=== PATIENT | female | born 1990 | race Caucasian/White ===

== ENCOUNTER 2017-01-22 14:23 | Inpatient (IN) | payer MEDICAID ==
[~2017-01-22] VITALS: Ht 165.1 cm; Wt 81.6 kg
[2017-01-22 14:27] VITALS: BP 128/64
[2017-01-22] MEDS ORDERED: LEVO0.173 PO (14:29)
--- NOTE | 2017-01-22 14:35 | NUR ---
Patient ambulated to bed 03.
--- NOTE | 2017-01-22 14:40 | NUR ---
PT CAME TO ER DUE TO N/V/D X1 DAY WITH DIZZINESS;PT STATES SHE HAS ABDOMINAL CRAMPING THAT RADIATES TO BILATERAL LEGS;BACK PAIN W/ PAIN SCALE OF 7/10 NON RADIATING;DENIES ANY MEDICAL HX;DENIES CP/SOB AT THIS TIME;AAOX4;NO ACUTE DISTRESS NOTED AT THIS TIME;HOB ELEVATED;NEEDS ATTENDED;SAFETY MEASURES DONE;POSITIONED FOR COMFORT;ALL MONITORS IN PLACED
[2017-01-22] MEDS ORDERED: NACL 0.9% 1,000 ML IV SCH (14:41)
[2017-01-22] MEDS ORDERED: ONDANSETRON 4 MG/2 ML VIAL IVP ONE ×2 (14:45→19:20)
--- NOTE | 2017-01-22 14:57 | NUR ---
Dr. Garza evalauting patient at bedside.
[2017-01-22] MEDS ORDERED: KETOROLAC 30 MG/ML VIAL IVP ONE (15:05)
[2017-01-22 15:22] LABS: BASOPHILS # (AUTO) 0.1 K/uL (0.00-0.22); BASOPHILS % (AUTO) 1.1 % (0.0-2.0); EOSINOPHILS % (AUTO) 0.6 % (0.0-4.0); HEMATOCRIT 40.4 % (36-48); HEMOGLOBIN 12.9 g/dL (12.0-16.0); LYMPHOCYTES # (AUTO) 1.6 K/uL (2.5-16.5); LYMPHOCYTES % (AUTO) 30.9 % (20.5-51.1); MEAN CORPUSCULAR HEMOGLOBIN 23 pg (27-31); MEAN CORPUSCULAR HGB CONC 32 g/dL (33-37); MEAN CORPUSCULAR VOLUME 73 fL (80-94); MONOCYTES # (AUTO) 0.2 K/uL (0.8-1.0); MONOCYTES % (AUTO) 4.7 % (1.7-9.3); NEUTROPHILS # (AUTO) 3.4 K/uL (1.8-7.7); NEUTROPHILS % (AUTO) 62.7 % (42.2-75.2); PLATELET COUNT (AUTO) 393 K/uL (140-450); RED BLOOD CELL COUNT(AUTO) 5.51 MIL/uL (4.20-5.40); RED CELL DISTRIBUTION WIDTH 13.6 % (11.6-13.7); WHITE BLOOD COUNT (AUTO) 5.3 K/uL (4.8-10.8)
[2017-01-22 15:28] LABS: BILIRUBIN,URINE NEGATIVE (NEGATIVE); BLOOD, URINE NEGATIVE (NEGATIVE); COLOR,URINE YELLOW (YELLOW); LEUKOCYTE ESTERASE ,URINE 1+ (NEGATIVE); NITRITE, URINE NEGATIVE (NEGATIVE); PROTEIN,URINE NEGATIVE (NEGATIVE); UGLUCOSE NEGATIVE (NEGATIVE); UROBILINOGEN,URINE 0.2 EU/dL (0.2 - 1)
[2017-01-22 15:31] LABS: APPEARANCE,URINE HAZY (CLEAR)
--- NOTE | 2017-01-22 15:34 | NUR ---
PT AMBULATED TO THE RESTROOM;
[2017-01-22 15:36] LABS: CALCIUM 9.2 mg/dL (8.5-10.1); CARBON DIOXIDE 26.5 mmol/L (21-32); CREATININE 0.8 mg/dL (0.6-1.3); POTASSIUM 3.5 mmol/L (3.5-5.1)
[2017-01-22 15:41] LABS: ALBUMIN 3.9 g/dL (3.4-5.0); TOTAL BILIRUBIN 0.6 mg/dL (0.0-1.0); TOTAL PROTEIN, SERUM 8.5 g/dL (6.4-8.2)
[2017-01-22 15:52] LABS: BACTERIA,URINE 2+ /HPF (None Seen); MUCUS,URINE 1+ /LPF (None Seen); RBC,URINE 0-3 /HPF (0-5); WBC,URINE 0-5 /HPF (0-5)
[2017-01-22 15:56] LABS: FREE T4 (FREE THYROXINE) 1.17 ng/dL (0.76-1.46); THYROID STIMULATING HORMONE 6.18 uIU/mL (0.34-3.76)
[2017-01-22] MEDS ORDERED: NACL 0.9% 1,000 ML IV ONE ×2 (16:15→18:30)
--- NOTE | 2017-01-22 16:22 | NUR ---
PT LYING ON BED NO ACUTE DISTRESS NOTED AT THIS TIME;WILL CONTINUE MONITOR PT.
--- NOTE | 2017-01-22 17:05 | NUR ---
ASKED PT IF SHE CAN GIVE A STOOL SPECIMEN BUT PT SAYS SHE CAN NOT AT THIS MOMENT.
--- NOTE | 2017-01-22 17:37 | NUR ---
PO CHALLENGE DONE;PT STATES SHE STILL FEELDS NAUSEATED;NO VOMITTING NOTED;WILL CONTINUE MONITOR PT.
[2017-01-22] MEDS ORDERED: HYDROmorphone 1 MG/ML AMP IVP ONE (18:00)
--- NOTE | 2017-01-22 18:01 | NUR ---
PT STATES HER BACK IS HURTING AGAIN;NOTIFIED DR RUIZ;ORDERED DILAUDID;WILL CONTINUE TO MONITOR PT.
--- NOTE | 2017-01-22 18:16 | NUR ---
ASKED PT IF SHE CAN GIVE A STOOL SPECIMEN;PT STILL UNABLE TO GIVE SAMPLE OF STOOL.
--- NOTE | 2017-01-22 18:34 | NUR ---
PT C/O DIZZINESS AND STATES "I FEEL LIKE PASSING OUT";NOTIFIED DR RUIZ ORDERED TO GIVE IVF.WILL CONTINUE TO MONITOR PT.
--- NOTE | 2017-01-22 19:15 | NUR ---
PT STILL VOMITING;C/O DIZZINESS;WILLL CONTINUE TO MONITOR PT.
--- NOTE | 2017-01-22 19:16 | NUR ---
Pt report given to PACO Bolanos. Transfer of care at this time.
--- NOTE | 2017-01-22 19:17 | NUR ---
REPORT RECEIVED FROM ANGELA ANTONIO. ASSUMED PT CARE.
[2017-01-22] MEDS ORDERED: LORazepam 2 MG/ML VIAL IVP PRN ×2 (19:35→19:40)
[2017-01-22] MEDS ORDERED: MORPHINE SULFATE 2 MG/ML SYR IVP PRN (19:35)
[2017-01-22] MEDS ORDERED: LEVOFLOXACIN 500 MG/D5W PREMIX 100 ML IV ONE (19:35)
[2017-01-22] MEDS ORDERED: PROMETHAZINE 25 MG/ML VIAL IVP PRN (19:35)
[2017-01-22] MEDS ORDERED: KETOROLAC 30 MG/ML VIAL IVP PRN (19:40)
[2017-01-22] MEDS ORDERED: DICYCLOMINE HCL LIQUID 20 MG, ALUMINUM HYD/MAG/SIMETHICONE 30 ML, LIDOCAINE VISCOUS 2% ... PO ONE ×3 (20:05)
--- NOTE | 2017-01-22 20:45 | NUR ---
ADMITTED 26YEARS OLD FEMALE FROM ER FOR VOMITTING. ORIENTED TO ROOM AND UNIT ROUTINES. SEE ADMISSION NURSING ASSESSMENT AND HISTORY. PLAN OF CARE DISCUSSED WITH PATIENT AND FAMILY MEMBER, VERBALIZED UNDERSTANDING WELL. CALL LIGHT WITHIN REACH.
--- NOTE | 2017-01-22 20:48 | NUR ---
Patient will be admitted to care of DR GOMEZ. Admited to TELEMETRY. Will go to room 115. Belongings list completed. Report to LAW ANTONIO.
[2017-01-22] MEDS: NACL 0.9% 1,000 ML IV SCH (22:16)
[2017-01-22] MEDS: HYDROcodone/APAP 5/325 MG 1 TAB TAB PO PRN (22:23)
--- NOTE | 2017-01-23 | NUR ---
SLEEPING WELL. NO COMPLAINS. IVF INFUSING WELL. VITAL SIGNS STABLE. CALL LIGHT WITHIN REACH.
[2017-01-23 00:03] VITALS: BP 95/48
[2017-01-23 04:19] VITALS: BP 97/50
--- NOTE | 2017-01-23 04:24 | NUR ---
VITAL SIGNS STABLE. NO COMPLAINS. SLEEPING WELL. NO VOMITTING NOTED. CALL LIGHT WITHIN REACH.
[2017-01-23 04:32] LABS: AMPHETAMINE, URINE NEG. ng/ml (NEG <=1000); BARBITURATE, URINE NEG. ng/ml (NEG <=200); BENZODIAZEPINE, URINE NEG. ng/mL (NEG <=200); CANNABINOID, URINE NEG. ng/mL (NEG <=50); COCAINE, URINE NEG. ng/mL (NEG <=300); OPIATE, URINE POS. ng/mL (NEG <=2000); PHENCYCLIDINE SCREEN,URINE NEG. ng/mL (NEG <=25)
[2017-01-23] MEDS: NACL 0.9% 1,000 ML IV SCH ×2 (05:31→15:31)
[2017-01-23] MEDS: LEVOTHYROXINE 0.075 MG, LEVOTHYROXINE 0.1 MG PO SCH ×2 (06:18)
[2017-01-23 06:29] LABS: BASOPHILS # (AUTO) 0.1 K/uL (0.00-0.22); BASOPHILS % (AUTO) 1.4 % (0.0-2.0); EOSINOPHILS % (AUTO) 1.1 % (0.0-4.0); HEMATOCRIT 33.9 % (36-48); HEMOGLOBIN 10.8 g/dL (12.0-16.0); LYMPHOCYTES # (AUTO) 2.5 K/uL (2.5-16.5); LYMPHOCYTES % (AUTO) 53.9 % (20.5-51.1); MEAN CORPUSCULAR HEMOGLOBIN 23 pg (27-31); MEAN CORPUSCULAR HGB CONC 32 g/dL (33-37); MEAN CORPUSCULAR VOLUME 73 fL (80-94); MONOCYTES # (AUTO) 0.4 K/uL (0.8-1.0); MONOCYTES % (AUTO) 9.4 % (1.7-9.3); NEUTROPHILS # (AUTO) 1.5 K/uL (1.8-7.7); NEUTROPHILS % (AUTO) 34.2 % (42.2-75.2); PLATELET COUNT (AUTO) 257 K/uL (140-450); RED BLOOD CELL COUNT(AUTO) 4.62 MIL/uL (4.20-5.40); RED CELL DISTRIBUTION WIDTH 13.3 % (11.6-13.7); WHITE BLOOD COUNT (AUTO) 4.5 K/uL (4.8-10.8)
[2017-01-23] MEDS ORDERED: LEVOTHYROXINE 0.075 MG TAB PO SCH (06:30)
[2017-01-23 06:38] LABS: MAGNESIUM 1.7 mg/dL (1.8-2.4); PHOSPHORUS 2.7 mg/dL (2.5-4.9)
[2017-01-23 06:47] LABS: ANION GAP 13.7 (8-16); CALCIUM 7.7 mg/dL (8.5-10.1); CARBON DIOXIDE 22.8 mmol/L (21-32); CREATININE 0.6 mg/dL (0.6-1.3); POTASSIUM 3.5 mmol/L (3.5-5.1)
--- NOTE | 2017-01-23 07:16 | NUR ---
ENDORSED CARE AT BEDSIDE WITH YANELI ANTONIO, PATIENT IN STABLE CONDITION.
--- NOTE | 2017-01-23 07:30 | NUR ---
RECEIVED REPORT FROM NIGHT NURSE. PT RESTING IN BED, AOX4, ABLE TO VERBALIZE NEEDS. PT DENIES N/V/D. PT DENIES CP, SOB OR S/S OF ACUTE DISTRESS. PT EDUCATED TO AVOID QUICK POSITION CHANGES AND TO MOVE SLOWLY. PT C/O HEADACHE, WILL MEDICATE ORDERED. IV SITE ASYMPTOMATIC, PATENT AND INTACT. IVF INFUSING WELL. REVIEWED AND DISCUSSED PLAN OF CARE WITH PT. PT VERBALIZES UNDERSTANDING. SAFETY MEASURES ENSURED. CALL LIGHT WITHIN REACH. WILL CONTINUE TO MONITOR.
[2017-01-23 08:00] VITALS: BP 107/61
--- NOTE | 2017-01-23 08:55 | NUR ---
MEDICATION ADMINISTERED WITH EDUCATION, PT VERBALIZES UNDERSTANDING. IVF INFUSING WELL. PT TOLERATED WELL. ALL NEEDS MET. SAFETY MEASURES ENSURED. WILL CONTINUE TO MONITOR.
[2017-01-23] MEDS ORDERED: APAP/BUTAL/CAFF 325/50/40 MG 1 TAB PO SCH (09:00)
[2017-01-23] MEDS ORDERED: MAG SULF 2000 MG/WATER PREMIX 50 ML IV SCH (09:00)
--- NOTE | 2017-01-23 09:03 | NUR ---
PATIENT HAS BEEN SCREENED AND CATEGORIZED MODERATE NUTRITION RISK. PATIENT WILL BE SEEN WITHIN 3-5 DAYS OF ADMISSION. 01/25/17-01/27/[address]
--- NOTE | 2017-01-23 10:59 | NUR ---
CM NOTE PER PATTERN ATTENDANT JOSÉ EXT [id number] SEND REVIEWS TO BOTH [email or web address] AND [facility]. INITIAL REVIEW SENT TO [email or web address] FAX# [phone] PH# [phone] AND [facility] FAX# [phone] PH# [phone]
[2017-01-23 12:00] VITALS: BP 109/65
[2017-01-23] MEDS ORDERED: APAP/BUTAL/CAFF 325/50/40 MG 1 TAB PO PRN (12:00)
--- NOTE | 2017-01-23 13:22 | NUR ---
MEDICATIONS ADMINISTERED WITH EDUCATION, PT VERBALIZES UNDERSTANDING. PT TOLERATED WELL. PT C/O PAIN, SEE PAIN ASSESSMENT. PT TOLERATING CLEAR LIQUID DIET, EATING 50% OF MEAL. PT STATES SHE "DOES NOT WANT TO DRINK TOO MUCH LIQUIDS." PT DENIES NAUSEA/VOMITING.
[2017-01-23] MEDS: DICYCLOMINE HCL LIQUID 10 MG/5 ML UDC PO SCH ×3 (13:43→20:50)
[2017-01-23] MEDS: HYDROcodone/APAP 5/325 MG 1 TAB TAB PO PRN (13:44)
[2017-01-23] MEDS ORDERED: tiZANidine 4 MG TAB PO PRN (15:05)
[2017-01-23] MEDS ORDERED: tiZANidine 4 MG TAB PO SCH (15:30)
[2017-01-23 16:00] VITALS: BP 121/84
[2017-01-23] MEDS: ONDANSETRON 4 MG/2 ML VIAL IVP PRN ×2 (16:28→20:43)
--- NOTE | 2017-01-23 16:35 | NUR ---
PT FRIENDS AT BEDSIDE. MEDICATIONS ADMINISTERED WITH EDUCATION, PT VERBALIZES UNDERSTANDING, PT TOLERATED MEDS WELL. PT ATE 50% OF SANDWICH, PT REPORTS SLIGHT NAUSEA. IV ZOFRAN ADMINISTERED ORDERED. PT TOLERATED WELL. SAFETY MEASURES ENSURED. WILL CONTINUE TO MONITOR.
--- NOTE | 2017-01-23 19:29 | NUR ---
ENDORSED PLAN OF CARE TO NIGHT NURSE. CONDITION STABLE.
--- NOTE | 2017-01-23 19:30 | NUR ---
RECD. RESTING IN BED, AWAKE, A/OX4, RESPIRATION EVEN AND UNLABORED. IV OF NS AT 100 ML/HR INFUSING, LEFT FOREARM G 22. STATED WITH OCCASIONAL CRAMPING IN THE STOMACH, NO DIARRHEA TODAY, LAST WAS SINCE YESTERDAY AM. PLAN OF CARE FOR THE SHIFT DISCUSSED. VERBALIZED UNDERSTANDING. PAIN 1/10, TOLERABLE. INSTRUCTED TO CALL NURSE WHEN HAVE A BM, NEED STOOL SPECIMEN FOR LAB TESTS.
--- NOTE | 2017-01-23 19:35 | NUR ---
Patient's Plan of Care was discussed and reviewed with COTTON BAG CLIPPER: DONOVAN
[2017-01-23 20:00] VITALS: BP 90/62
--- NOTE | 2017-01-23 20:00 | NUR ---
ASSISTED TO THE BR TO VOID, BACK TO BED AFTER VOIDING.
--- NOTE | 2017-01-23 20:43 | NUR ---
NAUSEATED, MEDICATED WITH ZOFRAN 4 MG. IVP BY PACO DORSEY.
--- NOTE | 2017-01-23 20:45 | NUR ---
HAD SMALL AMOUNT OF DIARRHEA, SENT SPECIMEN TO LAB FOR STOOL OB, STOOL CULTURE.
[2017-01-23] MEDS: tiZANidine 4 MG TAB PO SCH (20:50)
--- NOTE | 2017-01-23 21:13 | NUR ---
RESTING IN BED, NO NAUSEA NOTED. FAMILY AT THE BEDSIDE.
--- NOTE | 2017-01-23 21:20 | NUR ---
WENT AGAIN TO BR, FEELING THAT SHE WOULD HAVE A BM, BUT UNABLE TO HAVE ONE, BACK TO BED. SAFETY MAINTAINED.
--- NOTE | 2017-01-23 22:30 | NUR ---
IV INFILTRATED. NEW IV LINE INSERTED AT THE RIGHT FOREARM G22 BY PACO MERCEDES.
--- NOTE | 2017-01-23 23:00 | NUR ---
FEELING DIZZY, BP CHECKED - RIGHT ARM - 84/47, LEFT ARM - 66/36. PLACE ON [place] POSITION. WILL CONTINUE TO MONITOR.
--- NOTE | 2017-01-23 23:46 | NUR ---
INFORMED DR. LÓPEZ REGARDING PATIENT LOW BP, CHECKED AT 2330, BP -92/51, ON [place] POSITION. WILL ORDER FOR BOLUS.
[2017-01-24] VITALS: BP 92/51
[2017-01-24] MEDS ORDERED: NACL 0.9% 500 ML IV ONE (00:10)
--- NOTE | 2017-01-24 01:00 | NUR ---
NS 500 ML BOLUS STARTED,
[2017-01-24] MEDS: NACL 0.9% 1,000 ML IV SCH ×3 (01:31→09:45)
--- NOTE | 2017-01-24 02:20 | NUR ---
BP CHECKED, SITTING ON BED, 94/51, HR -74. NO COMPLAINT OF DIZZINESS.
--- NOTE | 2017-01-24 02:40 | NUR ---
IV INFILTRATED. NEW IV LINE INSERTED BY CHARGE NURSE RIGO, LEFT FOREARM G 20.
--- NOTE | 2017-01-24 03:30 | NUR ---
SLEEPING COMFORTABLY IN BED.
[2017-01-24 04:00] VITALS: BP 90/52
[2017-01-24] MEDS: tiZANidine 4 MG TAB PO SCH (04:50)
[2017-01-24 05:40] LABS: BASOPHILS # (AUTO) 0.1 K/uL (0.00-0.22); BASOPHILS % (AUTO) 2.4 % (0.0-2.0); EOSINOPHILS # (AUTO) 0.1 K/uL (0-0.4); EOSINOPHILS % (AUTO) 1.6 % (0.0-4.0); HEMATOCRIT 33.6 % (36-48); HEMOGLOBIN 10.6 g/dL (12.0-16.0); LYMPHOCYTES # (AUTO) 2.8 K/uL (2.5-16.5); LYMPHOCYTES % (AUTO) 51.6 % (20.5-51.1); MEAN CORPUSCULAR HEMOGLOBIN 23 pg (27-31); MEAN CORPUSCULAR HGB CONC 32 g/dL (33-37); MEAN CORPUSCULAR VOLUME 74 fL (80-94); MONOCYTES # (AUTO) 0.5 K/uL (0.8-1.0); NEUTROPHILS # (AUTO) 1.9 K/uL (1.8-7.7); NEUTROPHILS % (AUTO) 35.4 % (42.2-75.2); PLATELET COUNT (AUTO) 286 K/uL (140-450); RED BLOOD CELL COUNT(AUTO) 4.53 MIL/uL (4.20-5.40); RED CELL DISTRIBUTION WIDTH 13.5 % (11.6-13.7); WHITE BLOOD COUNT (AUTO) 5.4 K/uL (4.8-10.8)
[2017-01-24 05:58] LABS: ANION GAP 12.3 (8-16); CARBON DIOXIDE 23.6 mmol/L (21-32); CREATININE 0.7 mg/dL (0.6-1.3); POTASSIUM 3.9 mmol/L (3.5-5.1)
[2017-01-24 06:09] LABS: MAGNESIUM 2.3 mg/dL (1.8-2.4); PHOSPHORUS 2.7 mg/dL (2.5-4.9)
[2017-01-24] MEDS ORDERED: LEVOTHYROXINE 0.1 MG TAB ONE (06:42)
[2017-01-24] MEDS: LEVOTHYROXINE 0.075 MG, LEVOTHYROXINE 0.1 MG PO SCH ×2 (06:54)
--- NOTE | 2017-01-24 07:00 | NUR ---
AWAKE, AMBULATED TO BR TO VOID, CONDITION REMAIN STABLE. WILL ENDORSED TO AM NURSE FOR CONTINUITY OF CARE.
--- NOTE | 2017-01-24 07:15 | NUR ---
ENDORSED TO Ran KAY FOR CONTINUITY OF CARE.
--- NOTE | 2017-01-24 07:16 | NUR ---
RECEIVED REPORT FROM KNOWLEDGE MANAGEMENT ADVISOR NURSE AT BEDSIDE. PT IS ALERT ORIENTED AND AWAKE. INTRODUCED OURSELVES TO PT AND UPDATED THE BOARD. PT STATES SHE IS FEELING BETTER, DENIES PAIN, DENIES NAUSEA OR VOMITING. IV L FOREARM 20G, NS@100ML/HR INFUSING. CALL LIGHT WITHIN REACH. WILL CONTINUE TO MONITOR PT.
[2017-01-24 08:00] VITALS: BP 96/59
[2017-01-24] MEDS: DICYCLOMINE HCL LIQUID 10 MG/5 ML UDC PO SCH ×2 (09:43→12:26)
--- NOTE | 2017-01-24 10:16 | NUR ---
CM NOTE CONCURRENT REVIEW SENT TO [facility] FAX# [phone] PH# [phone] AND [facility] FAX# [phone] PH# [phone]
--- NOTE | 2017-01-24 10:48 | NUR ---
PT ASKED FOR PAIN MEDICATION FOR PAIN IN LOWER BED. ADMINISTERED TORADOL. WILL CONTINUE TO MONITOR AND REASSESS.
[2017-01-24] MEDS: ONDANSETRON 4 MG/2 ML VIAL IVP PRN (10:55)
--- NOTE | 2017-01-24 10:55 | NUR ---
PT C/O NAUSEA. ADMINISTERED ZOFRAN. PT TOLERATED WELL. WILL CONTINUE TO MONITOR.
--- NOTE | 2017-01-24 13:00 | NUR ---
PT RESTING IN BED. NO SIGNS OF DISCOMFORT OR DISTRESS. WILL CONTINUE TO MONITOR.
--- NOTE | 2017-01-24 15:00 | NUR ---
PT SLEEPING. NO SIGNS OF DISTRESS. CALL LIGHT WITHIN REACH. WILL CONTINUE TO MONITOR.
[2017-01-24 16:00] VITALS: BP 101/64
[2017-01-24] MEDS ORDERED: ONDA8ODT2 PO (16:42)
[2017-01-24] MEDS ORDERED: DOCU-67 PO (16:42)
[2017-01-24] MEDS ORDERED: HYDR-4452 PO (16:42)
[2017-01-24] MEDS ORDERED: LEVO250T2 PO (16:44)
[2017-01-24] MEDS ORDERED: ONDA4ODT1 SL (16:46)
[2017-01-24] MEDS ORDERED: BEN10 PO (16:50)
[2017-01-24] MEDS ORDERED: DICYCLOMINE HCL LIQUID 10 MG/5 ML UDC PO SCH (17:00)
--- NOTE | 2017-01-24 17:40 | NUR ---
DISCHARGE INSTRUCTIONS GIVEN AT BEDSIDE. PT VERBALIZED UNDERSTANDING. SIGNED ALL DISCHARGE PAPERS. ANSWERED ALL QUESTIONS. PT ALSO RECEIVED PRESCRIPTIONS FOR MEDICATIONS. REMINDED PT TO FOLLOW UP WITH PCP. PROVIDED PT WITH TOWELS AND SHAMPOO SHE WANTS TO TAKE A SHOWER BEFORE SHE LEAVES. D/C PATIENT'S IV, CANNULA INTACT, NO BLEEDING NOTED. PT TOLERATED WELL. REMOVED ID BANDS. PT WILL LET US KNOW WHEN SHE IS READY TO GO. WILL HAVE WHEELCHAIR READY.
--- NOTE | 2017-01-24 18:15 | NUR ---
PT LEFT WITH SPOUSE AT PT'S SIDE. HER PERSONAL BELONGINGS WITH HER. PT IS IN STABLE CONDITION.
== END 2017-01-24 18:15 | disposition home or self-care (01) | DRG 248 ==
LOC: MED 14:23 → MTU 19:33
PROVIDERS: ADMIT Family Medicine; ATTEND Family Medicine
DX: A04.7 Enterocolitis due to Clostridium difficile (principal); N39.0 Urinary tract infection, site not specified; A08.4 Viral intestinal infection, unspecified; E83.42 Hypomagnesemia; E03.9 Hypothyroidism, unspecified; M06.9 Rheumatoid arthritis, unspecified; E66.9 Obesity, unspecified; Z68.30 Body mass index [BMI] 30.0-30.9, adult; Z87.59 Personal history of other complications of pregnancy, childbirth and the puerperium; Z83.3 Family history of diabetes mellitus; Z82.49 Family history of ischemic heart disease and other diseases of the circulatory system
CPT/HCPCS: 36415; 80048; 80053; 80305; 81001; 81025; 82272; 83690; 83735; 84100; 84439; 84443; 84703; 85025; 87045; 87070; 87081; 87086; 87804; 89055; 93005; 96361; 96374; 96375; 96376; 99285; J1170; J1885; J1956; J2405; J3475; J7030

== ENCOUNTER 2018-07-08 18:25 | Emergency (ER) | payer MEDICAID, OTHER ==
[~2018-07-08] VITALS: Ht 165.1 cm; Wt 86.2 kg
[~2018-07-08 18:25] MED LIST: ACET-787 PO; BEN10 PO; DOCU-299 PO; LEVO0.173 PO; LEVO250T2 PO; ONDA4ODT1 SL
[2018-07-08 18:30] VITALS: BP 127/82
--- NOTE | 2018-07-08 18:50 | NUR ---
27 YO FEMALE BIB SELF FOR HAND SWELLING AND THROAT PAIN x 1 mo intermittently. pt report heaviness, -sob, -cp, +dizziness, -n/v/d, +itiching throughout body, ls clear throughout, abd soft non tender, will continue to monitor, er md issa aware. pt positioned for comfort.
--- NOTE | 2018-07-08 19:20 | NUR ---
dr naqvi at bedside for pt eval
[2018-07-08] MEDS ORDERED: NACL 0.9% 1,000 ML IV ONE (19:50)
[2018-07-08] MEDS ORDERED: methylPREDNISolone SS 125 MG in WATER STERILE 2 ML IV ONE (19:50)
[2018-07-08] MEDS ORDERED: diphenhydrAMINE 50 MG/ML VIAL IVP ONE (19:50)
[2018-07-08 20:15] LABS: BASOPHILS % (AUTO) 0.6 % (0.0-2.0); EOSINOPHILS # (AUTO) 0.1 K/uL (0-0.4); HEMATOCRIT 38.1 % (36-48); HEMOGLOBIN 12.1 g/dL (12.0-16.0); LYMPHOCYTES # (AUTO) 3.9 K/uL (2.5-16.5); LYMPHOCYTES % (AUTO) 50.7 % (20.5-51.1); MEAN CORPUSCULAR HEMOGLOBIN 22 pg (27-31); MEAN CORPUSCULAR HGB CONC 32 g/dL (33-37); MEAN CORPUSCULAR VOLUME 69.1 fL (80-94); MONOCYTES # (AUTO) 0.4 K/uL (0.8-1.0); MONOCYTES % (AUTO) 4.6 % (1.7-9.3); NEUTROPHILS # (AUTO) 3.4 K/uL (1.8-7.7); NEUTROPHILS % (AUTO) 43.1 % (42.2-75.2); PLATELET COUNT (AUTO) 392 K/uL (140-450); RED BLOOD CELL COUNT(AUTO) 5.51 MIL/uL (4.20-5.40); RED CELL DISTRIBUTION WIDTH 16.2 % (11.6-13.7); WHITE BLOOD COUNT (AUTO) 7.8 K/uL (4.8-10.8)
[2018-07-08 20:21] LABS: ANION GAP 9.5 (8-16); CARBON DIOXIDE 27.2 mmol/L (21-32); CREATININE 0.7 mg/dL (0.6-1.3); POTASSIUM 3.7 mmol/L (3.5-5.1)
[2018-07-08 20:22] LABS: APPEARANCE,URINE CLEAR (CLEAR); BILIRUBIN,URINE NEGATIVE (NEGATIVE); BLOOD, URINE NEGATIVE (NEGATIVE); LEUKOCYTE ESTERASE ,URINE TRACE (NEGATIVE); NITRITE, URINE NEGATIVE (NEGATIVE); UGLUCOSE NEGATIVE (NEGATIVE)
[2018-07-08 20:27] LABS: ALBUMIN 3.9 g/dL (3.4-5.0); TOTAL BILIRUBIN 0.2 mg/dL (0.0-1.0)
[2018-07-08 20:35] LABS: COLOR,URINE STRAW (YELLOW); RBC,URINE NONE SEEN /HPF (0-5); WBC,URINE NONE SEEN /HPF (0-5)
--- NOTE | 2018-07-08 20:58 | NUR ---
PT RESTING IN BED COMFORTABLY. NO S/S OF DISTRESS NOTED.
--- NOTE | 2018-07-08 22:10 | NUR ---
DR. LUBIN MADE AWARE OF PTS HR 118. WILL CONTINUE TO MONITOR
--- NOTE | 2018-07-08 23:00 | NUR ---
MADE DR. LUBIN AWARE THAT PTS HR 125. HE STATED OKAY
[2018-07-08 23:15] VITALS: BP 110/65
--- NOTE | 2018-07-08 23:15 | NUR ---
Patient discharged BY DR. LUBIN with v/s stable. Written and verbal after care instructions given and explained. Patient alert, oriented and verbalized understanding of instructions. Ambulatory with steady gait. All questions addressed prior to discharge. ID band removed. Patient advised to follow up with PMD. Rx of PREDNISONE given. Patient educated on indication of medication including possible reaction and side effects. Opportunity to ask questions provided and answered.
--- NOTE | 2018-07-08 23:22 | NUR ---
Note kazrosanna in EDM - 07/08/18 at 2323 by MAE Patient discharged with v/s stable. Written and verbal after care instructions given and explained. Patient alert, oriented and verbalized understanding of instructions. Ambulatory with steady gait. All questions addressed prior to discharge. ID band removed. Patient advised to follow up with PMD. Rx of PREDNISONE given. Patient educated on indication of medication including possible reaction and side effects. Opportunity to ask questions provided and answered.
== END 2018-07-08 23:15 | disposition home or self-care (01) ==
LOC: MED 18:25
DX: M79.641 Pain in right hand (principal); M79.642 Pain in left hand; M79.89 Other specified soft tissue disorders; L53.9 Erythematous condition, unspecified; E05.90 Thyrotoxicosis, unspecified without thyrotoxic crisis or storm; M06.9 Rheumatoid arthritis, unspecified; Z79.1 Long term (current) use of non-steroidal anti-inflammatories (NSAID); Z79.2 Long term (current) use of antibiotics
CPT/HCPCS: 36415; 80053; 81001; 81025; 85025; 96372; 96374; 96375; 99284; J0171; J1200; J2930; J7030

== ENCOUNTER 2018-09-10 09:57 | Emergency (ER) | payer OTHER ==
[~2018-09-10] VITALS: Ht 162.6 cm; Wt 86.2 kg
[2018-09-10 10:03] VITALS: BP 140/88
--- NOTE | 2018-09-10 10:05 | NUR ---
PT AMBULATED TO BED 12
--- NOTE | 2018-09-10 10:18 | NUR ---
PT C/O N/V AND DIZZINESS SINCE LAST NIGHT, DENIES CP/SOB OR FEVERS. NO OTHER COMPLAINTS. ABD SOFT FLAT NONTENDER. LUNGS CLEAR BILAT. PT MUSCLE STRENGTH EQUAL BILAT, GCS 15. ALERT AND ORIENTS X 4. HX---HYPOTHYROID MEDS---SYNTHROID
--- NOTE | 2018-09-10 10:41 | NUR ---
Patient appears to be resting comfortably in bed; C/O PARKER 6/10 AT THIS TIME. BP 127/81, P98/MIN. Respirations even and unlabored. WILL CONTINUE TO MONITOR.
--- NOTE | 2018-09-10 10:44 | NUR ---
Patient being evaluated by DR ROTH at bedside.
[2018-09-10] MEDS ORDERED: MECLIZINE 25 MG TAB PO ONE (10:55)
[2018-09-10] MEDS ORDERED: ONDANSETRON 4 MG ODT PO ONE (10:55)
[2018-09-10] MEDS ORDERED: ACETAMINOPHEN 325 MG TAB PO ONE (10:55)
--- NOTE | 2018-09-10 11:37 | NUR ---
REPORTED GIVEN TO ROBERT FORD
[2018-09-10] MEDS ORDERED: KETOROLAC 60 MG/2 ML VIAL IM ONE (12:10)
[2018-09-10 13:12] VITALS: BP 113/72
--- NOTE | 2018-09-10 13:12 | NUR ---
Patient discharged with v/s stable. Written and verbal after care instructions given and explained. Patient alert, oriented and verbalized understanding of instructions. Ambulatory with steady gait. All questions addressed prior to discharge. ID band removed. Patient advised to follow up with PMD. Rx of MECLIZINE & ZOFRAN given. Patient educated on indication of medication including possible reaction and side effects. Opportunity to ask questions provided and answered.
== END 2018-09-10 13:12 | disposition home or self-care (01) ==
LOC: MED 09:57
DX: R42 Dizziness and giddiness (principal); R51 Headache; R11.2 Nausea with vomiting, unspecified; E03.9 Hypothyroidism, unspecified; M79.7 Fibromyalgia; M06.9 Rheumatoid arthritis, unspecified; Z79.899 Other long term (current) drug therapy
CPT/HCPCS: 81002; 81025; 96372; 99284; J1885; J8597; Q0162

== ENCOUNTER 2018-09-17 22:21 | Outpatient (CLI) | payer OTHER ==
[~2018-09-17 22:21] MED LIST changes: +ONDA-121 SL; -ONDA4ODT1 SL
[2018-09-18 14:12] LABS: HEMATOCRIT 38.1 % (36-48); HEMOGLOBIN 11.4 g/dL (12.0-16.0); MEAN CORPUSCULAR HEMOGLOBIN 21 pg (27-31); MEAN CORPUSCULAR HGB CONC 30 g/dL (33-37); MEAN CORPUSCULAR VOLUME 71.2 fL (80-94); PLATELET COUNT (AUTO) 437 K/uL (140-450); RED BLOOD CELL COUNT(AUTO) 5.35 MIL/uL (4.20-5.40); RED CELL DISTRIBUTION WIDTH 17.7 % (11.6-13.7); WHITE BLOOD COUNT (AUTO) 7.7 K/uL (4.8-10.8)
[2018-09-18 14:56] LABS: BASOPHILS % (MANUAL) 1 % (0-2); EOSINOPHILS % (MANUAL) 1 % (0-4); LYMPHOCYTES % (MANUAL) 55 % (20-46); MONOCYTES % (MANUAL) 5 % (5-12)
[2018-09-22 11:37] LABS: T4 (THYROXINE) 10.6 ug/dL (4.5-12.0)
== END 2018-09-17 22:59 | disposition home or self-care (01) ==
LOC: MLB 22:21
DX: L50.2 Urticaria due to cold and heat (principal)
CPT/HCPCS: 36415; 84436; 84479; 85025; 86003

== ENCOUNTER 2018-10-08 17:00 | Outpatient (CLI) | payer OTHER ==
[2018-10-08 18:03] LABS: CHOL/HDL RATIO 5.6 (1-4.5)
[2018-10-08 18:40] LABS: THYROID STIMULATING HORMONE 1.84 uIU/mL (0.34-3.74)
== END 2018-10-08 20:45 | disposition home or self-care (01) ==
LOC: MLB 17:00
PROVIDERS: ATTEND Family Medicine
DX: E03.9 Hypothyroidism, unspecified (principal); E55.9 Vitamin D deficiency, unspecified; E11.9 Type 2 diabetes mellitus without complications; I10 Essential (primary) hypertension
CPT/HCPCS: 36415; 82306; 84443

== ENCOUNTER 2018-10-12 21:42 | Outpatient (CLI) | payer OTHER ==
[2018-10-13 01:54] LABS: APPEARANCE,URINE CLEAR (CLEAR); BILIRUBIN,URINE NEGATIVE (NEGATIVE); BLOOD, URINE TRACE-L (NEGATIVE); COLOR,URINE YELLOW (YELLOW); LEUKOCYTE ESTERASE ,URINE NEGATIVE (NEGATIVE); NITRITE, URINE NEGATIVE (NEGATIVE); UGLUCOSE NEGATIVE (NEGATIVE)
[2018-10-13 01:56] LABS: RBC,URINE NONE SEEN /HPF (0-5); WBC,URINE NONE SEEN /HPF (0-5)
== END 2018-10-12 22:55 | disposition home or self-care (01) ==
LOC: MLB 21:42
DX: T78.3XXA Angioneurotic edema, initial encounter (principal); M32.9 Systemic lupus erythematosus, unspecified; J30.1 Allergic rhinitis due to pollen
CPT/HCPCS: 36415; 81001; 86003; 86038; 86160; 86376

== ENCOUNTER 2019-02-02 05:28 | Emergency (ER) | payer OTHER ==
[~2019-02-02] VITALS: Ht 162.6 cm; Wt 88.5 kg
[~2019-02-02 05:28] MED LIST changes: -ONDA-121 SL; +ONDA-24 SL
[2019-02-02 05:40] VITALS: BP 117/74
--- NOTE | 2019-02-02 05:50 | NUR ---
PT TO ED WITH C/O NAUSEA AND VOMITTING X 1 DAY. DENIES ABDOMINAL PAIN. BOWEL SOUNDS ACTIVE. NO OBVIOUS DISTENTION NOTED. PT PLACED INTO BED, PENDING MD COHN.
[2019-02-02] MEDS ORDERED: NACL 0.9% 1,000 ML IV ONE (06:02)
[2019-02-02] MEDS ORDERED: ONDANSETRON 4 MG/2 ML VIAL IVP ONE ×2 (06:05→07:20)
[2019-02-02 06:21] LABS: BASOPHILS % (AUTO) 0.6 % (0.0-2.0); EOSINOPHILS # (AUTO) 0.1 K/uL (0-0.4); EOSINOPHILS % (AUTO) 1.3 % (0.0-4.0); HEMATOCRIT 36.7 % (36-48); HEMOGLOBIN 11.6 g/dL (12.0-16.0); LYMPHOCYTES % (AUTO) 53.9 % (20.5-51.1); MEAN CORPUSCULAR HEMOGLOBIN 21 pg (27-31); MEAN CORPUSCULAR HGB CONC 32 g/dL (33-37); MEAN CORPUSCULAR VOLUME 65.8 fL (80-94); MONOCYTES # (AUTO) 0.4 K/uL (0.8-1.0); MONOCYTES % (AUTO) 4.9 % (1.7-9.3); NEUTROPHILS # (AUTO) 2.9 K/uL (1.8-7.7); NEUTROPHILS % (AUTO) 39.3 % (42.2-75.2); PLATELET COUNT (AUTO) 412 K/uL (140-450); RED BLOOD CELL COUNT(AUTO) 5.57 MIL/uL (4.20-5.40); RED CELL DISTRIBUTION WIDTH 16.6 % (11.6-13.7); WHITE BLOOD COUNT (AUTO) 7.3 K/uL (4.8-10.8)
[2019-02-02 06:35] LABS: BILIRUBIN,URINE NEGATIVE (NEGATIVE); BLOOD, URINE NEGATIVE (NEGATIVE); COLOR,URINE YELLOW (YELLOW); LEUKOCYTE ESTERASE ,URINE NEGATIVE (NEGATIVE); NITRITE, URINE NEGATIVE (NEGATIVE); UGLUCOSE NEGATIVE (NEGATIVE)
[2019-02-02 06:36] LABS: ANION GAP 13.7 (8-16); POTASSIUM 3.7 mmol/L (3.5-5.1)
[2019-02-02 06:37] LABS: CREATININE 0.7 mg/dL (0.6-1.3)
[2019-02-02 06:38] LABS: APPEARANCE,URINE CLEAR (CLEAR)
[2019-02-02 06:56] LABS: TOTAL BILIRUBIN 0.4 mg/dL (0.0-1.0)
[2019-02-02 06:58] LABS: FREE T4 (FREE THYROXINE) 0.91 ng/dL (0.76-1.46); THYROID STIMULATING HORMONE 35.34 uIU/mL (0.34-3.74)
--- NOTE | 2019-02-02 07:18 | NUR ---
REPORT TO PACO OMALLEY FOR CONTINUATION OF CARE.
[2019-02-02] MEDS ORDERED: LIDOCAINE VISCOUS 2% 20 ML UDC PO ONE (07:20)
--- NOTE | 2019-02-02 07:22 | NUR ---
REPORT FROM PACO MAHER
--- NOTE | 2019-02-02 07:48 | NUR ---
DR. CASSIDY AT BEDSIDE AT BEDSIDE TO RE-EVALUATE PT.
[2019-02-02 07:58] VITALS: BP 114/70
--- NOTE | 2019-02-02 08:00 | NUR ---
Patient discharged with v/s stable. Written and verbal after care instructions given and explained. Patient alert, oriented and verbalized understanding of instructions. Ambulatory with steady gait. All questions addressed prior to discharge. ID band removed. Patient advised to follow up with PMD. Rx of ZOFRAN AND MYLANTA given. Patient educated on indication of medication including possible reaction and side effects. Opportunity to ask questions provided and answered.
== END 2019-02-02 08:00 | disposition home or self-care (01) ==
LOC: MED 05:28
DX: R11.2 Nausea with vomiting, unspecified (principal); R10.10 Upper abdominal pain, unspecified; E07.9 Disorder of thyroid, unspecified; Z79.899 Other long term (current) drug therapy
CPT/HCPCS: 36415; 80053; 81002; 81003; 81025; 83690; 84439; 84443; 84702; 84703; 85025; 96361; 96374; 96376; 99283; J2405; J7030

== ENCOUNTER 2019-06-10 03:30 | Outpatient (CLI) | payer OTHER | END 2019-06-10 20:07 | disposition home or self-care (01) | LOC: MLB 03:30 | DX: Z32.00 Encounter for pregnancy test, result unknown (principal) | CPT/HCPCS: 84703 ==

== ENCOUNTER 2019-07-21 17:54 | Outpatient (CLI) | payer OTHER ==
[2019-07-21 18:20] LABS: BASOPHILS % (AUTO) 0.4 % (0.0-2.0); EOSINOPHILS # (AUTO) 0.1 K/uL (0-0.4); EOSINOPHILS % (AUTO) 1.5 % (0.0-4.0); HEMATOCRIT 38.9 % (36-48); HEMOGLOBIN 12.3 g/dL (12.0-16.0); LYMPHOCYTES # (AUTO) 3.9 K/uL (2.5-16.5); LYMPHOCYTES % (AUTO) 61.2 % (20.5-51.1); MEAN CORPUSCULAR HEMOGLOBIN 23 pg (27-31); MEAN CORPUSCULAR HGB CONC 32 g/dL (33-37); MEAN CORPUSCULAR VOLUME 72.3 fL (80-94); MONOCYTES # (AUTO) 0.4 K/uL (0.8-1.0); MONOCYTES % (AUTO) 6.1 % (1.7-9.3); NEUTROPHILS % (AUTO) 30.8 % (42.2-75.2); PLATELET COUNT (AUTO) 314 K/uL (140-450); RED BLOOD CELL COUNT(AUTO) 5.38 MIL/uL (4.20-5.40); RED CELL DISTRIBUTION WIDTH 21.3 % (11.6-13.7); WHITE BLOOD COUNT (AUTO) 6.3 K/uL (4.8-10.8)
[2019-07-21 18:45] LABS: ALBUMIN 4.7 g/dL (3.4-5.0); ANION GAP 16.3 (8-16); CARBON DIOXIDE 25.7 mmol/L (21-32); CREATININE 0.7 mg/dL (0.6-1.3); TOTAL BILIRUBIN 0.3 mg/dL (0.0-1.0)
== END 2019-07-21 20:20 | disposition home or self-care (01) ==
LOC: MLB 17:54
DX: M05.79 Rheumatoid arthritis with rheumatoid factor of multiple sites without organ or systems involvement (principal); M79.7 Fibromyalgia
CPT/HCPCS: 36415; 80053; 85025; 85651; 86140

== ENCOUNTER 2019-10-10 18:48 | Emergency (ER) | payer OTHER ==
[~2019-10-10] VITALS: Ht 162.6 cm; Wt 88.9 kg
[2019-10-10 19:08] VITALS: BP 131/74
--- NOTE | 2019-10-10 19:20 | NUR ---
28 y/o female c/o generalized weakness, fatigue, cough, congestion, fever x 3 wks. Lung sounds clear/diminished throughout. 98% on RA. Noted productive cough. pain is a 5/10 generalized pain. Denies N/v/d; feverl and chills. Patient states, "I feel like I'm going to pass out. I feel this burning sensation in my chest from all the coughing". ERMD made aware of status. Side railsx1. Will continue to monitor. hx--hypothyroid, ra, fibromyalgia rx---actemra infusion 1 / month
--- NOTE | 2019-10-10 21:46 | NUR ---
X-Ray at bedside.
[2019-10-10 22:40] VITALS: BP 117/63
--- NOTE | 2019-10-10 22:49 | NUR ---
Patient discharged with v/s stable. Written and verbal after care instructions given and explained. Patient alert, oriented and verbalized understanding of instructions. Ambulatory with steady gait. All questions addressed prior to discharge. ID band removed. Patient advised to follow up with PMD. Rx of TAMIFLU, VENTOLIN, MEDROL given. Patient educated on indication of medication including possible reaction and side effects. Opportunity to ask questions provided and answered.
== END 2019-10-10 22:49 | disposition home or self-care (01) ==
LOC: MED 18:48
DX: J20.9 Acute bronchitis, unspecified (principal); E03.9 Hypothyroidism, unspecified; Z79.899 Other long term (current) drug therapy
CPT/HCPCS: 71045; 99283; Q0092

== ENCOUNTER 2019-11-17 09:08 | Outpatient (CLI) | payer OTHER ==
[2019-11-17 09:56] LABS: BASOPHILS % (AUTO) 0.7 % (0.0-2.0); EOSINOPHILS # (AUTO) 0.2 K/uL (0-0.4); EOSINOPHILS % (AUTO) 4.3 % (0.0-4.0); HEMATOCRIT 37.6 % (36-48); HEMOGLOBIN 12.2 g/dL (12.0-16.0); LYMPHOCYTES # (AUTO) 2.5 K/uL (2.5-16.5); LYMPHOCYTES % (AUTO) 70.3 % (20.5-51.1); MEAN CORPUSCULAR HEMOGLOBIN 23 pg (27-31); MEAN CORPUSCULAR HGB CONC 32 g/dL (33-37); MEAN CORPUSCULAR VOLUME 71.4 fL (80-94); MONOCYTES # (AUTO) 0.3 K/uL (0.8-1.0); MONOCYTES % (AUTO) 9.2 % (1.7-9.3); NEUTROPHILS # (AUTO) 0.6 K/uL (1.8-7.7); NEUTROPHILS % (AUTO) 15.5 % (42.2-75.2); PLATELET COUNT (AUTO) 415 K/uL (140-450); RED BLOOD CELL COUNT(AUTO) 5.27 MIL/uL (4.20-5.40); RED CELL DISTRIBUTION WIDTH 15.1 % (11.6-13.7); WHITE BLOOD COUNT (AUTO) 3.6 K/uL (4.8-10.8)
[2019-11-17 10:15] LABS: ANION GAP 14.4 (8-16); CARBON DIOXIDE 25.7 mmol/L (21-32); CREATININE 0.6 mg/dL (0.6-1.3); FREE T4 (FREE THYROXINE) 1.9 ng/dL (0.76-1.46); POTASSIUM 4.1 mmol/L (3.5-5.1); THYROID STIMULATING HORMONE 0.62 uIU/mL (0.34-3.74); TOTAL BILIRUBIN 0.2 mg/dL (0.0-1.0)
== END 2019-11-17 20:07 | disposition home or self-care (01) ==
LOC: MLB 09:08
PROVIDERS: ATTEND Family Medicine
DX: E03.9 Hypothyroidism, unspecified (principal)
CPT/HCPCS: 36415; 80053; 82306; 84439; 84443; 85025

== ENCOUNTER 2021-02-14 12:15 | Outpatient (CLI) | payer OTHER ==
[~2021-02-14 12:15] MED LIST changes: -ACET-787 PO; +HYDR-5191 PO
[2021-02-14 12:52] LABS: BASOPHILS # (AUTO) 0.1 K/uL (0.00-0.22); BASOPHILS % (AUTO) 0.7 % (0.0-2.0); EOSINOPHILS # (AUTO) 0.1 K/uL (0-0.4); EOSINOPHILS % (AUTO) 1.1 % (0.0-4.0); HEMATOCRIT 38.4 % (36-48); HEMOGLOBIN 12.5 g/dL (12.0-16.0); LYMPHOCYTES # (AUTO) 3.5 K/uL (2.5-16.5); LYMPHOCYTES % (AUTO) 43.5 % (20.5-51.1); MEAN CORPUSCULAR HEMOGLOBIN 24 pg (27-31); MEAN CORPUSCULAR HGB CONC 32 g/dL (33-37); MEAN CORPUSCULAR VOLUME 74.5 fL (80-94); MONOCYTES # (AUTO) 0.6 K/uL (0.8-1.0); MONOCYTES % (AUTO) 7.4 % (1.7-9.3); NEUTROPHILS # (AUTO) 3.8 K/uL (1.8-7.7); NEUTROPHILS % (AUTO) 47.3 % (42.2-75.2); PLATELET COUNT (AUTO) 392 K/uL (140-450); RED BLOOD CELL COUNT(AUTO) 5.16 MIL/uL (4.20-5.40); RED CELL DISTRIBUTION WIDTH 15.2 % (11.6-13.7)
[2021-02-14 13:13] LABS: ALBUMIN 3.9 g/dL (3.4-5.0); ANION GAP 16.2 (8-16); CARBON DIOXIDE 23.7 mmol/L (21-32); CREATININE 0.7 mg/dL (0.6-1.3); MAGNESIUM 1.9 mg/dL (1.8-2.4); POTASSIUM 3.9 mmol/L (3.5-5.1); THYROID STIMULATING HORMONE 3.69 uIU/mL (0.34-3.74); TOTAL BILIRUBIN 0.2 mg/dL (0.0-1.0)
[2021-02-15 14:38] LABS: HEPATITIS A ANTIBODY IGM NEGATIVE (NEGATIVE); HEPATITIS B SURFACE ANTIGEN NEGATIVE (NEGATIVE)
[2021-02-15 16:50] LABS: ANTI-NUCLEAR ANTIBODY,DIRECT Positive (Negative)
== END 2021-02-14 21:08 | disposition home or self-care (01) ==
LOC: MLB 12:15
DX: M06.9 Rheumatoid arthritis, unspecified (principal); B19.20 Unspecified viral hepatitis C without hepatic coma; Z11.1 Encounter for screening for respiratory tuberculosis; Z11.59 Encounter for screening for other viral diseases; Z79.899 Other long term (current) drug therapy
CPT/HCPCS: 36415; 80053; 80074; 82085; 82607; 82746; 83520; 83735; 84443; 85025; 85651; 86038; 86140; 86235; 86430; 86702

== ENCOUNTER 2021-06-08 13:40 | Emergency (ER) | payer OTHER ==
[~2021-06-08] VITALS: Ht 165.1 cm; Wt 83.9 kg
[2021-06-08 13:49] VITALS: BP 146/89
--- NOTE | 2021-06-08 13:57 | NUR ---
PT AMB TO BED 1.
--- NOTE | 2021-06-08 14:00 | NUR ---
30 Y FEMALE WITH C/O DIZZINESS, PARKER X 30 MINS AGO. PT STATED SHE STARTED TO FEEL A BURNING SENSATION IN THE BACK OF HER HEAD ALONG WITH LIGHT HEADNESS AND DIZZINESS. PT DENIES ANY SOB/CHEST PAIN AT THIS TIME PMH: HYPOTHYROID, RA NKA
[2021-06-08] MEDS ORDERED: NACL 0.9% 1,000 ML IV ONE (14:30)
[2021-06-08 14:53] LABS: BASOPHILS % (AUTO) 0.7 % (0.0-2.0); EOSINOPHILS # (AUTO) 0.1 K/uL (0-0.4); EOSINOPHILS % (AUTO) 0.9 % (0.0-4.0); HEMATOCRIT 37.5 % (36-48); LYMPHOCYTES # (AUTO) 3.3 K/uL (2.5-16.5); LYMPHOCYTES % (AUTO) 47.1 % (20.5-51.1); MEAN CORPUSCULAR HEMOGLOBIN 24 pg (27-31); MEAN CORPUSCULAR HGB CONC 32 g/dL (33-37); MEAN CORPUSCULAR VOLUME 73.5 fL (80-94); MONOCYTES # (AUTO) 0.3 K/uL (0.8-1.0); MONOCYTES % (AUTO) 4.4 % (1.7-9.3); NEUTROPHILS # (AUTO) 3.3 K/uL (1.8-7.7); NEUTROPHILS % (AUTO) 46.9 % (42.2-75.2); PLATELET COUNT (AUTO) 376 K/uL (140-450); RED BLOOD CELL COUNT(AUTO) 5.11 MIL/uL (4.20-5.40); RED CELL DISTRIBUTION WIDTH 15.2 % (11.6-13.7)
[2021-06-08 15:12] LABS: ALBUMIN 3.9 g/dL (3.4-5.0); ANION GAP 14.2 (8-16); CARBON DIOXIDE 26.5 mmol/L (21-32); CREATININE 0.7 mg/dL (0.6-1.3); POTASSIUM 3.7 mmol/L (3.5-5.1); TOTAL BILIRUBIN 0.2 mg/dL (0.0-1.0)
[2021-06-08] MEDS ORDERED: KETOROLAC 15 MG/ML VIAL IVP ONE (15:50)
[2021-06-08] MEDS ORDERED: PROCHLORPERAZINE 10 MG/2 ML VIAL IVP ONE (15:55)
[2021-06-08] MEDS ORDERED: IBUP-2213 PO (16:47)
[2021-06-08 17:00] VITALS: BP 124/80
== END 2021-06-08 17:09 | disposition home or self-care (01) ==
LOC: MED 13:40
DX: R51.9 Headache, unspecified (principal); R42 Dizziness and giddiness; R55 Syncope and collapse
CPT/HCPCS: 36415; 70450; 71045; 80053; 81025; 84484; 85025; 93005; 96361; 96374; 96375; 99285; J0780; J1885; J7030